=== PATIENT | female | born 1965 | race Caucasian/White ===

== ENCOUNTER 2017-10-28 07:55 | Day surgery (SDC) | payer OTHER ==
[~2017-10-28 07:55] MED LIST: CEFAZOLIN 1 GM INJ; CLINDAMYCIN 900 MG/50 ML D5W IVPB IVPB; LIDOCAINE 100 MG SYRINGE
[2017-10-28] MEDS ORDERED: SOD CHLORIDE 0.9% 1,000 ML IV (10:30)
[2017-10-28] MEDS ORDERED: CLINDAMYCIN 600 MG/D5W (PMX) 50 ML IVPB (10:30)
[2017-10-28] MEDS ORDERED: PROPOFOL 100 ML (12:17)
[2017-10-28] MEDS ORDERED: BUPIVACAINE 0.25% (MPF) 30 ML INJ (12:26)
[2017-10-28] MEDS ORDERED: EPHEDrine SULFATE 50 MG/5 ML SYG IV (12:30)
[2017-10-28] MEDS ORDERED: LABETALOL HCL 20MG INJ IV (12:30)
[2017-10-28] MEDS ORDERED: DIPHENHYDRAMINE 50 MG INJ IV (12:30)
[2017-10-28] MEDS ORDERED: OXYCODONE/ACETAMINOPHEN (5/325) TAB PO ×2 (12:30)
[2017-10-28] MEDS ORDERED: ALBUTEROL 0.083% (NEB) 2.5 MG/3 ML AMP HHN (12:30)
[2017-10-28] MEDS ORDERED: FENTAnyl 50 MCG/ML VIAL IV ×3 (12:30)
[2017-10-28] MEDS ORDERED: hydrALAzine 20 MG INJ IV (12:30)
[2017-10-28] MEDS ORDERED: METOCLOPRAMIDE 10 MG INJ IV (12:30)
[2017-10-28] MEDS ORDERED: HYDROmorphONE (0.2 MG/ML) 10ML SYG IV ×3 (12:30)
[2017-10-28] MEDS ORDERED: KETOROLAC 30 MG INJ IV (12:30)
[2017-10-28] MEDS ORDERED: MEPERIDINE 25 MG INJ IV (12:30)
[2017-10-28] MEDS: BUPIVACAINE 0.25% (MPF) 30 ML INJ INJ (12:35)
[2017-10-28] MEDS ORDERED: SUGAMMADEX SODIUM 200 MG/2 ML VIAL IV (12:55)
[2017-10-28] MEDS ORDERED: ROCURONIUM 50 MG INJ (12:59)
[2017-10-28] MEDS ORDERED: HYDROCODONE/APAP (5/325) TAB PO (13:00)
[2017-10-28] MEDS: ONDANSETRON 4 MG INJ IV (13:32)
== END 2017-10-28 14:30 | disposition home or self-care (01) ==
LOC: SDS 07:55
DX: D17.22 Benign lipomatous neoplasm of skin and subcutaneous tissue of left arm (principal); L72.0 Epidermal cyst; E03.9 Hypothyroidism, unspecified
CPT/HCPCS: 14020; 88307